=== PATIENT | male | born 1980 | race Caucasian/White ===

== ENCOUNTER 2017-11-21 13:12 | Emergency (ER) | payer BC ==
[~2017-11-21] VITALS: Ht 177.8 cm; Wt 85.0 kg
[~2017-11-21 13:12] MED LIST: MULT-506 PO; SNQ50 PO
[2017-11-21 13:16] VITALS: TEMP 36.7; Ht 177.8 cm; Wt 85.0 kg
--- NOTE | 2017-11-21 14:10 | EMERGENCY ROOM VISIT NOTE ---
ED Visit Note First contact with patient: 13:57 CHIEF COMPLAINT: Head injury HISTORY OF PRESENT ILLNESS: This 36-year-old male patient presented to the emergency department, ambulatory, approximately 1 hour after receiving a head injury while at baseball practice. The patient states he was pitching in the batting cage standing approximately 8 feet away from the bladder when a line drive struck him in the left forehead. There was no brief loss of consciousness. There has been no vomiting. The patient complains of pain in the area of the contusion on the left forehead. The patient denies visual symptoms, light sensitivity, vomiting, numbness or tingling, weakness, or ambulatory dysfunction. The patient does report some mild dizziness. The headache has been constant, but improving. The patient complains of no neck pain. The patient has taken no medications for the pain. The patient rates the pain as 0/10 and throbbing. The patient denies bowel or bladder dysfunction. The patient denies any other injuries. The patient does have a history of concussions x3. REVIEW OF SYSTEMS: A 10 system review of systems was performed with positives and pertinent negatives listed in the history of present illness. All other systems were reviewed and are negative. ALLERGIES: None MEDICATIONS: Doxepin PMH: Anxiety SOCIAL HISTORY: The patient lives locally with family. He denies drug, alcohol , tobacco use. PHYSICAL EXAM: Vital Signs: Reviewed Nurse's notes, vital signs stable. GENERAL : This is a 36-year-old white male, in no acute distress, well-developed, well- nourished. NEURO: The patient is alert, oriented to person place and time, and coherent. Normal mini mental status exam. Negative Romberg and pronator drift. No gait disturbances. Cerebellar function intact. HEAD: Normocephalic. There is a contusion with mild swelling on the left forehead. Mild tenderness to palpation. No crepitus. Superficial laceration which does not gape apart with traction present in the center of the contusion. EYES: Pupils are equal round and reactive to light and accommodation. EOMs are full and optic discs and fundi are normal. There is no swelling or discoloration of the tissue surrounding the eyes. EARS: External auditory canals clear without blood. No Byrd's Sign. NOSE: Patent without tenderness. No septal hematoma. FACE: No facial bone tenderness. NECK: Supple. There is No cervical spine tenderness. The patient does not have tenderness with movement of the neck. ED COURSE: I examined the patient. I advised him that based on mechanism of injury and symptoms, I suspect a mild concussion. He is not exhibiting any concerning signs for ICH or skull fracture. I discussed benefits vs. risks associated with CT scanning at this time. The patient verbalized understanding and feels comfortable with monitoring at home. I do feel that this is reasonable , however did provide the patient with strict return precautions. The wound on the face was cleansed with sterile saline and bandaged with steri-strips. All questions answered to the patient's satisfaction prior to discharge. The patient 's blood pressure was elevated throughout his visit, however he states he normally runs high and is feeling stressed at this time. I advised him to follow -up for a re-check with his PCP this week. Discharge instructions reviewed. The patient was discharged home in good condition ambulatory. I attest that I have personally reviewed the patient's current medication list. Patient was found to have an elevated blood pressure and was referred to their primary doctor for recheck and further treatment. Differential diagnosis includes closed head injury, concussion, intracranial hemorrhage, skull fracture, contusion, headache, infection, malignancy, and others. DIAGNOSIS: Closed Head injury, superficial facial laceration The chart was completed utilizing [employer] Speech voice recognition software. Grammatical errors, random word insertions, pronoun errors, and incomplete sentences are an occasional consequence of this system due to software limitations, ambient noise, and hardware issues. Any formal questions or concerns about the content, text, or information contained within the body of this dictation should be directly addressed to the provider for clarification. Current/Historical Medications Scheduled Doxepin HCl (Doxepin HCl), 50 MG PO DAILY Multivitamin (Multivitamin), 1 TAB PO DAILY Allergies Coded Allergies: SHELLFISH (Verified Allergy, Severe, HIVES,SOB, 01/03/14) Dust (Verified Allergy, Unknown, `, 01/03/14) Vital Signs Date Time Temp Pulse Resp B/P (MAP) Pulse Ox O2 Delivery O2 Flow Rate FiO2 11/21/17 14:54 69 20 162/101 96 11/21/17 13:16 36.7 75 18 154/99 98 Room Air Departure Information Impression Primary Impression: Closed head injury Additional Impression: Superficial laceration of face Dispostion Home / Self-Care Condition GOOD Referrals Marainna Gacría M.D. (PCP) Patient Instructions ED Laceration Facial Sutr Tape, My [facility] [employer] Additional Instructions You have been treated in the Emergency Department for a Closed Head Injury. As discussed, we did elect to avoid CT scanning at this time. With that said, if any symptoms change or you exhibit any concerning symptoms, return immediately to the emergency department for further evaluation and management. Leave the Steri-Strips in place. They will fall off on their own. Avoid getting them wet. When they do follow-up, you may clean the wounds with soap and water. Avoid scrubbing over the wound. Apply small amount of antibiotic ointment over the wound. For pain control, you can use the following [id number] medicines (if >12 yo): Ibuprofen(Motrin, Advil) may be used for fever or pain. Use 600mg every six hours as needed. Take with food. Avoid using more than 2400mg in a 24 hour period. Do not use 2400mg per day for more than three consecutive days without physician direction. Prolonged inappropriate use can lead to stomach upset or ulcers. (AND/OR) Acetaminophen(Tylenol) may be used for fever or pain. Use 1000mg every six hours as needed. Avoid using more than 3000mg in a 24 hour period. You should relax in a quiet, dark place for the rest of the day. Avoid any possible triggers including: cigarette smoke, caffeine, nicotine, chocolate, wine, beer, loud noises or music, or bright lights. You should NOT return to athletic play until reevaluated by your Consulting Property Manager or PCP. You should fully comply with their standard protocol regarding head injuries. Your Consulting Property Manager OR Primary Care Provider will have the final say in your return to athletic play. This timeframe should be AT LEAST 1 week AFTER the date of last symptoms experienced! This is ESSENTIAL to allow for adequate brain healing time and for reduced risk of re-injury. Follow-up with your primary care provider in 1-2 days for reevaluation of your symptoms. Return to the Emergency Department if your current symptoms worsen despite treatment course outlined above, or if you develop any of the following symptoms : intractable pain despite aforementioned treatment course, visual disturbances , loss of vision, unilateral weakness or facial drooping, slurring of speech, loss of coordination, or loss of consciousness. Problem Qualifiers Primary Impression: Closed head injury Encounter type: initial encounter Qualified Codes: S09.90XA - Unspecified injury of head, initial encounter
[2017-11-21 14:54] VITALS: BP 162/101; PULSE 69; O2SAT 96
== END 2017-11-21 14:57 | disposition home or self-care (01) ==
LOC: C.EDB 13:13 → C.EDD 14:57
DX: S00.83XA Contusion of other part of head, initial encounter (principal); W21.03XA Struck by baseball, initial encounter; Y93.64 Activity, baseball; F41.9 Anxiety disorder, unspecified; Z79.899 Other long term (current) drug therapy